=== PATIENT | male | born 1955 | race Caucasian/White ===

== ENCOUNTER 2021-09-10 08:05 | Outpatient (REF) | payer MEDICARE, SELFPAY ==
[2021-09-10 11:27] LABS: MANUAL DIFF FLAG NO
[2021-09-10 11:35] LABS: Appearance Urine TURBID; Color Urine YELLOW; Glucose Urine UA NEG (NEG); Leukocyte Esterase Urine NEG (NEG); Nitrite Urine NEG (NEG); Specific Gravity - Urine >= 1.030 (1.005-1.025); Urine Blood NEG (NEG); Urine Ketones NEG (NEG); Urine Protein NEG (NEG-TRACE)
[2021-09-10 11:39] LABS: Basophils Percent Auto 0.7 % (0-2); Eosinophils Percent Auto 0.2 % (0-4); Hematocrit 45.1 % (42-52); Hemoglobin 15.7 g/dl (14.0-18.0); Imm Gran Abs Auto 0.01 X10*3/uL (0.00-0.03); Imm Gran Pct Auto 0.2 % (0.0-0.4); Lymphocytes Absolute Auto 1.6 X10*3/uL (1.2-4.9); Lymphocytes Percent Auto 27.6 % (20-40); Mean Corpuscular HGB Conc 34.8 g/dl (31.0-36.0); Mean Platelet Volume 11.1 fL (9.4-12.4); Monocytes Absolute Auto 0.5 X10*3/uL (0.1-1.2); Monocytes Percent Auto 9.3 % (2-11); Neutrophils Absolute Auto 3.5 X10*3/uL (2.0-8.3); Platelet Count 201 X10*3/uL (160-400); Red Cell Distribution Width 14.3 % (11.0-16.0); White Blood Count 5.7 X10*3/uL (4.8-10.8)
[2021-09-10 11:55] LABS: Estimated Average Glucose 100 mg/dL; Hemoglobin A1c % 5.1 %
[2021-09-10 11:58] LABS: Alanine Aminotransferase 31 U/L (0-40); Albumin Level 4.3 g/dL (3.5-5.0); Alkaline Phosphatase 82 U/L (39-117); Amorphous Sediment Urine 4+ /LPF; Anion Gap 14 (12-20); Aspartate Amino Transferase 24 U/L (5-37); Bilirubin Total 0.8 mg/dL (0.0-1.0); Blood Urea Nitrogen 12 mg/dL (9-16); Calcium 9.4 mg/dL (8.4-10.2); Carbon Dioxide 26 mmol/L (22-29); Chloride 107 mmol/L (96-108); Cholesterol 146 mg/dL; Estimated Glomerular Filt Rate > 60; Glucose Fasting 117 mg/dL (60-99); HDL Cholesterol 55 mg/dL; LDL Cholesterol Calculated 77 mg/dl; Potassium 4.7 mmol/L (3.3-5.1); RBC Urine 0-2 /HPF (0); Sodium 142 mmol/L (135-145); Total Protein 6.8 g/dL (6.5-8.0); Triglycerides 70 mg/dL; WBC Urine 0-2 /HPF (0-4)
[2021-09-10 12:19] LABS: Vitamin D 25-OH Total 54.8 ng/mL (>30)
[2021-09-10 12:21] LABS: Creatinine Urine 258.08 mg/dL; Microalbum/Creatinine Ratio Ur 4.2 ug/mg cr
[2021-09-10 12:43] LABS: Folate 15.6 ng/mL (> or = 4.0); Vitamin B12 871 pg/mL (200-900)
[2021-09-15 11:21] LABS: Vitamin B1 67 nmol/L (8-30)
[2021-09-15 14:17] LABS: Vitamin B6 67.7 ng/mL (2.1-21.7)
== END 2021-09-10 08:06 | disposition home or self-care (01) ==
LOC: HO.HMGCLDS 08:05
PROVIDERS: PCP Internal Medicine; Visit Provider Internal Medicine
DX: I10 Essential (primary) hypertension (principal); E78.00 Pure hypercholesterolemia, unspecified; G62.9 Polyneuropathy, unspecified
CPT/HCPCS: 36415; 80053; 80061; 81001; 82043; 82306; 82607; 82746; 83036; 84207; 84425; 85025

== ENCOUNTER → 2022-08-15 09:43 | Outpatient (REF) | payer MEDICARE, SELFPAY ==
--- NOTE | 2022-08-15 | ECG_ITS ---
Test Reason : i10 Blood Pressure : / mmHG Vent. Rate : 101 BPM Atrial Rate : 101 BPM P-R Int : 172 ms QRS Dur : 090 ms QT Int : 342 ms P-R-T Axes : 051 020 044 degrees QTc Int : 443 ms Sinus tachycardia Otherwise normal ECG No previous ECGs available Referred By: Louis Gaviria Electronically Signed By:LOUIS FORRESTER
[2022-08-15 11:38] LABS: MANUAL DIFF FLAG NO
[2022-08-15 11:45] LABS: Basophils Absolute Auto 0.1 X10*3/uL (0.0-0.2); Basophils Percent Auto 0.9 % (0-2); Eosinophils Percent Auto 0.4 % (0-4); Hematocrit 49.6 % (42.0-52.0); Hemoglobin 17.4 g/dl (14.0-18.0); Imm Gran Abs Auto 0.02 X10*3/uL (0.00-0.03); Imm Gran Pct Auto 0.4 % (0.0-0.4); Lymphocytes Absolute Auto 1.8 X10*3/uL (1.2-4.9); Lymphocytes Percent Auto 33.4 % (20-40); Mean Corpuscular HGB Conc 35.1 g/dl (31.0-36.0); Mean Corpuscular Hemoglobin 31.6 pg (27.0-33.0); Mean Corpuscular Volume 90.2 fL (80.0-98.0); Mean Platelet Volume 10.8 fL (9.4-12.4); Monocytes Absolute Auto 0.5 X10*3/uL (0.1-1.2); Monocytes Percent Auto 8.2 % (2-11); Neutrophils Absolute Auto 3.1 x10*3/uL (2.0-8.3); Neutrophils Percent Auto 56.7 % (45-73); Platelet Count 217 X10*3/uL (160-400); Red Cell Distribution Width 13.1 % (11.0-16.0); White Blood Count 5.5 X10*3/uL (4.8-10.8)
[2022-08-15 11:58] LABS: Appearance Urine Clear; Color Urine Dark Yellow; Glucose Urine UA Negative (Negative); Leukocyte Esterase Urine Trace (Negative); Nitrite Urine Negative (Negative); UMIC TRIGGER UA YES; Urine Blood Negative (Negative); Urine Ketones Negative (Negative); Urine Protein Negative (Neg-Trace)
[2022-08-15 12:00] LABS: Estimated Average Glucose 105 mg/dL; Hemoglobin A1c % 5.3 %
[2022-08-15 12:04] LABS: Bacteria Urine None Seen (None Seen); Hyaline Casts Urine 0-2 /LPF (0-2); RBC Urine 0-2 /HPF (0-2); Squamous Epithelial Cell Urine 0-2 /HPF (0-2); WBC Urine 0-5 /HPF (0-5)
[2022-08-15 12:16] LABS: Alanine Aminotransferase 38 U/L (0-40); Albumin Level 4.8 g/dL (3.5-5.0); Alkaline Phosphatase 89 U/L (39-117); Anion Gap 16 (12-20); Aspartate Amino Transferase 24 U/L (5-37); Bilirubin Total 1.4 mg/dL (0.0-1.0); Blood Urea Nitrogen 17 mg/dL (9-16); Carbon Dioxide 26 mmol/L (22-29); Chloride 102 mmol/L (96-108); Cholesterol 188 mg/dL; Estimated Glomerular Filt Rate > 60; Glucose Fasting 123 mg/dL (60-99); HDL Cholesterol 52 mg/dL; LDL Cholesterol Calculated 109 mg/dl; Potassium 4.2 mmol/L (3.3-5.1); Sodium 140 mmol/L (135-145); Total Protein 7.7 g/dL (6.5-8.0); Triglycerides 139 mg/dL
[2022-08-15 12:24] LABS: Thyroid Stimulating Hormone 0.91 uIU/mL (0.32-4.0); Vitamin D 25-OH Total 56.9 ng/mL (>30)
[2022-08-15 12:32] LABS: Cortisol Random 10.4 ug/dL
[2022-08-15 12:51] LABS: Folate > 20.0 ng/mL (> or = 4.0); Vitamin B12 659 pg/mL (200-900)
[2022-08-15 13:07] LABS: Creatinine Urine 186.82 mg/dL; Microalbum/Creatinine Ratio Ur 4.8 ug/mg cr
--- NOTE | 2022-08-15 14:08 | CA_ITS ---
Transthoracic Echocardiogram Patient (Last, First, Middle): Eber Causey V Gender: Male Date of : 1955 Age: 67 Procedure Date: 08/15/2022 Procedure Type: Transthoracic Echocardiogram Location: OP Height: 180.34 cm Weight: 90.72 kg BSA: 2.11 m2 Heart Rate: 106 bpm BP: 140 / 80 mmHg Panel Edge Painter: MICHAEL Referring MD: Louis Gaviria DO Dairy Processing Supervisor: Nicolás Aldana MD Symptoms: I10 Study Quality: Technically Difficult ECG Rhythm: Tachycardia Conclusions: - 1. Technically difficult study 2. Normal LV systolic function with impaired relaxation filling pattern next 3. Fibrocalcific aortic and mitral and calcification noted with normal cardiac valvular Doppler Findings Left Ventricle Normal left ventricular size, thickness, and systolic function. The visually estimated ejection fraction is between 55-60%. Regional wall motion abnormalities can not be excluded due to suboptimal endocardial definition. Spectral Doppler is indicative of an impaired relaxation filling pattern. E/E prime ratio is between 8 and 15 consistent with indeterminate filling pressures. Possible basal inferior and inferoseptal hypokinesis. Right Ventricle Normal right ventricular cavity size. Atria The left atrium is normal in size. Interatrial shunt cannot be excluded. The right atrium was not well visualized. Aortic Valve There is mild calcification of the aortic valve. There is no aortic valve stenosis. There is no aortic valve regurgitation. Mitral Valve There is mild anterior and posterior mitral leaflet thickening. There is mild mitral annular calcification. There is trace mitral valve regurgitation. There is no mitral valve stenosis. Pulmonic Valve The pulmonic valve was not well visualized. Tricuspid Valve Likely normal tricuspid valve structure and function. Tricuspid regurgitation envelope is inadequate for calculation of right ventricular systolic pressure. Great Vessels The aorta was not well visualized. The pulmonary artery was not well visualized. Venous The inferior vena cava was not well visualized. Pericardium/Pleural The pericardium was not well visualized. Prior Study Comparison No prior study available for comparison. Recommendations, Care & Conclusions Recommend contrast in the future to improve endocardial definition. Measurements 2D Linear Measurements IVSd: 1.23 0.6-0.9/0.6-1.0 cm LVIDd: 3.37 3.9-5.3/4.2-5.9 cm LVIDd Index: 1.60 2.4-3.2/2.2-3.1 cm/m2 LVIDs: 2.51 2.0-3.6 cm LVPWd: 0.89 0.7-1.1 cm LA Diam: 2.90 2.7-3.8/3.0-4.0 cm LAIDs Index: 1.37 1.5-2.3 cm/m2 LV Mass: 132.28 67-162/88-224 g LV Mass Index: 62.69 43-95/49-115 g/m2 LVOT Diam: 2.00 3.0+(-)1.3 cm 2D Systolic Function EF 4C: 59.60 >55% EF 2C: 50.20 >55% EF BiP: 55.50 >55% Mitral Valve MV Pk E: 0.60 MV PK A: 1.08 MV Decel Time: 177.00 E/A: 0.60 E'Lateral: 7.29 E'Medial: 5.44 E/E' Med: 11.10 E/E' Lat: 8.30 PHT: 52.00 MVA PHT: 4.23 Decel Tompkins: 3.41 Aortic Valve AoV Pk Yehuda: 0.82 AoV Mn Yehuda: 0.64 AoV VTI: 0.15 AoV Pk Grad: 3.00 Aov Mn Grad: 2.00 XIOMY Cont.VTI: 3.04 LVOT LVOT Pk Yehuda: 0.83 LVOT Mn Yehuda: 0.61 LVOT VTI: 0.15 LVOT Pk Grad: 3.00 LVOT Mn Grad: 2.00 LVOT Diam: 2.00 LVOT Area: 3.14 Diastolic Function MV Pk E: 0.60 MV Pk A: 1.08 E/A: 0.60 E'Medial: 5.44 E/E' Med: 11.10 E' Laterial: 7.29 E/E' Lat: 8.30 Right Ventricle TAPSE (mm): 17.30 TVS' Yehuda: 9.90 Great Vessels Aorta Sinus of Valsalva: 3.90 2.0-3.5 cm Ao Asc: 3.70 2.1-3.4 cm Pulmonary Valve PV Pk Yehuda: 0.86 Peak PV Grad: 3.00 Updated in Other Vendor System with Status of Final Nicolás Aldana MD electronically signed on 08/16/2022 11:44:49 AM with status of Final
[2022-08-15 14:18] LABS: Prostate Specific Antigen 0.27 ng/mL (<0.05-4.0)
[2022-08-20 16:07] LABS: Vitamin B1 37 nmol/L (8-30)
[2022-08-20 19:17] LABS: Vitamin B5 (Pantothenic Acid) 475 ng/mL (<275)
[2022-08-21 09:41] LABS: Vitamin B6 58.7 ng/mL (2.1-21.7)
[2022-08-22 20:37] LABS: Testosterone, Free 57.1 pg/mL (35.0-155.0); Testosterone, Total 488 ng/dL (250-1100)
[2022-08-23 14:11] LABS: Nicotinamide 80 ng/mL; Vit B3 - Nicotinic Acid <20 ng/mL
== END ==
LOC: HO.CARD 09:43
PROVIDERS: PCP Internal Medicine; Visit Provider Internal Medicine
DX: Z12.5 Encounter for screening for malignant neoplasm of prostate (principal); I10 Essential (primary) hypertension
CPT/HCPCS: 36415; 80053; 80061; 81001; 82043; 82306; 82533; 82607; 82746; 83036; 84153; 84207; 84402; 84403; 84425; 84443; 84591; 85025; 93005; 93306

== ENCOUNTER 2023-07-11 11:36 | Outpatient (REF) | payer MEDICARE, SELFPAY ==
[2023-07-11 13:48] LABS: Appearance Urine Clear; Color Urine Dark Yellow; Glucose Urine UA Negative (Negative); Leukocyte Esterase Urine Negative (Negative); Nitrite Urine Negative (Negative); PH 5.5 (5.0-9.0); Specific Gravity - Urine 1.025 (1.005-1.025); Urine Blood Negative (Negative); Urine Ketones Negative (Negative); Urine Protein Negative (Neg-Trace)
[2023-07-11 13:54] LABS: Bacteria Urine None Seen (None Seen); Hyaline Casts Urine 0-2 /LPF (0-2); RBC Urine 0-2 /HPF (0-2); Squamous Epithelial Cell Urine 0-2 /HPF (0-2); WBC Urine 0-5 /HPF (0-5)
[2023-07-11 13:58] LABS: MANUAL DIFF FLAG NO
[2023-07-11 14:10] LABS: Basophils Percent Auto 0.7 % (0-2); Eosinophils Absolute Auto 0.1 X10*3/uL (0.0-0.4); Eosinophils Percent Auto 2.4 % (0-4); Hematocrit 45.4 % (42.0-52.0); Hemoglobin 15.7 g/dl (14.0-18.0); Imm Gran Abs Auto 0.03 X10*3/uL (0.00-0.03); Imm Gran Pct Auto 0.5 % (0.0-0.4); Lymphocytes Absolute Auto 2.1 X10*3/uL (1.2-4.9); Lymphocytes Percent Auto 36.2 % (20-40); Mean Corpuscular HGB Conc 34.6 g/dl (31.0-36.0); Mean Corpuscular Hemoglobin 32.1 pg (27.0-33.0); Mean Corpuscular Volume 92.8 fL (80.0-98.0); Monocytes Absolute Auto 0.5 X10*3/uL (0.1-1.2); Monocytes Percent Auto 9.2 % (2-11); Platelet Count 193 X10*3/uL (160-400); Red Blood Count 4.89 X10*6/uL (4.60-5.80); Red Cell Distribution Width 13.1 % (11.0-16.0); White Blood Count 5.9 X10*3/uL (4.8-10.8)
[2023-07-11 14:27] LABS: Estimated Average Glucose 103 mg/dL; Hemoglobin A1c % 5.2 % (<6.0)
[2023-07-11 14:36] LABS: Creatinine Urine 162.12 mg/dL; Microalbum/Creatinine Ratio Ur 5.5 ug/mg cr (<30)
[2023-07-11 16:27] LABS: Alanine Aminotransferase 32 U/L (0-40); Albumin Level 4.2 g/dL (3.5-5.0); Alkaline Phosphatase 101 U/L (39-117); Anion Gap 14 (12-20); Aspartate Amino Transferase 22 U/L (5-37); Bilirubin Total 0.8 mg/dL (0.0-1.0); Blood Urea Nitrogen 17 mg/dL (9-16); Calcium 9.3 mg/dL (8.4-10.2); Carbon Dioxide 25 mmol/L (22-29); Chloride 105 mmol/L (96-108); Cholesterol 165 mg/dL (<200); Estimated Glomerular Filt Rate > 60; Glucose Fasting 111 mg/dL (60-99); HDL Cholesterol 57 mg/dL (>40); LDL Cholesterol Calculated 80 mg/dL (<100); Potassium 3.8 mmol/L (3.3-5.1); Sodium 140 mmol/L (135-145); Total Protein 7.2 g/dL (6.5-8.0); Triglycerides 142 mg/dL (<150)
[2023-07-11 16:30] LABS: Prostate Specific Antigen 0.34 ng/mL (<0.05-4.0)
[2023-07-11 16:55] LABS: Thyroid Stimulating Hormone 1.06 uIU/mL (0.32-4.0)
== END 2023-07-11 11:37 | disposition home or self-care (01) ==
LOC: HO.HMGCLDS 11:36
PROVIDERS: PCP Internal Medicine; Visit Provider Internal Medicine
DX: Z12.5 Encounter for screening for malignant neoplasm of prostate (principal); I10 Essential (primary) hypertension; E78.00 Pure hypercholesterolemia, unspecified; G62.9 Polyneuropathy, unspecified; R73.01 Impaired fasting glucose
CPT/HCPCS: 36415; 80053; 80061; 81001; 82043; 83036; 84153; 84443; 85025

== ENCOUNTER 2024-07-07 12:52 | Outpatient (REF) | payer MEDICARE, SELFPAY ==
--- NOTE | ~2024-07-07 | XR_ITS ---
EXAMINATION: XR CERVICAL SPINE CLINICAL INFORMATION: Neck pain. COMPARISON: None available. TECHNIQUE: Frontal, odontoid, lateral and swimmer's views of the cervical spine were obtained. FINDINGS: Vertebral body heights are normal. There is a mild cervicothoracic levoscoliosis. At C5-6, there is moderately severe disc space narrowing, with endplate arthropathy. The remaining disc spaces are relatively well-maintained. No acute fracture or spondylolisthesis is seen. The posterior elements are intact. The paravertebral soft tissues are unremarkable. XR/XR cervical spine 3V IMPRESSION: 1. There is moderately severe degenerative disc disease at C5-6. 2. There is a mild cervicothoracic levoscoliosis. Electronically signed by: Hao Duvall MD 07/26/2024 09:00 PM EDT RP
== END 2024-07-07 12:53 | disposition home or self-care (01) ==
LOC: HO.HMGCX 12:52
PROVIDERS: PCP Internal Medicine; Visit Provider Internal Medicine
DX: M54.2 Cervicalgia (principal)
CPT/HCPCS: 72040

== ENCOUNTER 2024-08-11 08:22 | Day surgery (SDC) | payer MEDICARE, SELFPAY ==
[2024-08-09 13:51] VITALS: BMI 28.9
[2024-08-09 14:19] VITALS: BMI 28.9
--- NOTE | 2024-08-10 08:30 | HO.ANESPROP2 ---
Documented by User: Cher Fuentes NP 08/10/24 08:31 HPI - Anesthesia Eval Consult details Narrative: 69yo M for Colonoscopy [facility] Past Medical History Medical History HTN (hypertension) Surgical History Surgical History Hx of colonoscopy Social History Social History Patient Tobacco Use Status: Never used Tobacco Use of substances other than those prescribed or required for medical reasons: No Are you DNR?: No Advance Directives: No Advance Directives Information Provided: Yes Meds Allergies Allergy/AdvReac Type Severity Reaction Status Date / Time No Known Allergies Allergy Unverified 08/08/24 16:45 Home Medications ?Medication ?Instructions ?Recorded ?Confirmed ?Last Taken ?Type aspirin 81 mg tablet,delayed 81 mg PO DAILY 08/09/24 08/09/24 Unknown History release hydrochlorothiazide 25 mg tablet 25 mg PO QAM 08/09/24 08/09/24 Unknown History multivitamin 1 tab PO DAILY 08/09/24 08/09/24 Unknown History propranolol 60 mg capsule,24 60 mg PO DAILY 08/09/24 08/09/24 Unknown History hr,extended release rosuvastatin 5 mg tablet 5 mg PO DAILY 08/09/24 08/09/24 Unknown History Exam Height,Weight and Vital Signs: Height 5 ft 11 in Weight 93.894 kg Assessment and Plan Assessment Anesthesia Assessment: Chart Reviewed Documented by User: Margarita Alexander MD 08/11/24 08:39 [facility] Past Medical History Medical History HTN (hypertension) Family History Family history of problems with anesthesia: No Surgical History Surgical History Hx of colonoscopy History of Problems with Anesthesia: No Social History Social History Patient Tobacco Use Status: Never used Tobacco Use of substances other than those prescribed or required for medical reasons: No Are you DNR?: No Advance Directives: No Advance Directives Information Provided: Yes Meds Allergies Allergy/AdvReac Type Severity Reaction Status Date / Time No Known Allergies Allergy Unverified 08/08/24 16:45 Home Medications ?Medication ?Instructions ?Recorded ?Confirmed ?Last Taken ?Type aspirin 81 mg tablet,delayed 81 mg PO DAILY 08/09/24 08/09/24 Unknown History release hydrochlorothiazide 25 mg tablet 25 mg PO QAM 08/09/24 08/09/24 Unknown History multivitamin 1 tab PO DAILY 08/09/24 08/09/24 Unknown History propranolol 60 mg capsule,24 60 mg PO DAILY 08/09/24 08/09/24 Unknown History hr,extended release rosuvastatin 5 mg tablet 5 mg PO DAILY 08/09/24 08/09/24 Unknown History Exam Airway Mallampati Class: II TM Dist: >3cm Neck ROM: Full Heart: rrr Lungs: cta Assessment and Plan Assessment Anesthesia Assessment: Anesthesia Plan Discussed Final Anesthetic Review Family History of Problems with Anesthesia: No History of Problems with Anesthesia: No NPO: Yes ASA Class: II Final Preanesthetic Review: No Changes in Pt Med Stat, Meds/Allgs Chart Reviewed, Consent Obtained/Reviewed and Anes Risks/Benef Reviewed Patient Risk: Low
--- OUTSIDE RECORDS SUMMARY | 2024-08-11 08:24 | XMS_ITS | Continuity of Care Document ---
Author Organization [facility] Address [address] [place] [id number]- Care Team Providers Care Supervisor Taping Name Role Phone Louis Gaviria DO Primary Care Physician [place] [facility] [place] - 10/04/[address] [address]- Patient Care team information Care Team Personnel Name: Louis Gaviria DO Position: Reference Physician Member Role: PCP Address: Address: [address] [place] [address] [place] [address]- Care Team Related Persons Name: KIMBERLY MURILLO
--- OUTSIDE RECORDS SUMMARY | 2024-08-11 08:24 | XMS_ITS | Continuity of Care Document ---
Author Organization [facility] Address [address] [address]- Care Team Providers Care Balancing Machine Operator Name Role Phone Louis Gaviria DO Primary Care Physician Encounter [facility] [place] Date(s): 09/04/22 - 11/16/22 [facility] [address] [address]- Attending Physician: Naresh Thompson MD, Balaji Hernandez Admitting Physician: Naresh Thompson MD, Balaji Hernandez Referring Physician: Louis Gaviria DO Patient Care team information Care Team Personnel Name: Louis Gaviria DO Position: Reference Physician Member Role: PCP Address: Address: [address] [place] [address] [place] [address]- Care Team Related Persons Name: KIMBERLY MURILLO
--- OUTSIDE RECORDS SUMMARY | 2024-08-11 08:24 | XMS_ITS | Continuity of Care Document ---
Author Organization [facility] Address [address] [address]- Care Team Providers Care Dental Receptionist Name Role Phone Louis Gaviria DO Primary Care Physician Encounter [facility] [place] Date(s): 10/17/22 - 11/16/22 [id number], [place] [address]- Attending Physician: Admtr, Ar8 Admitting Physician: Admtr, Ar8 Referring Physician: Admtr, Ar8 Patient Care team information Care Team Personnel Name: Louis Gaviria DO Position: Reference Physician Member Role: PCP Address: Address: [address] [place] [address] [place] [address]- Care Team Related Persons Name: KIMBERLY MURILLO
[2024-08-11 09:21] VITALS: BP 138/84; PULSE 78; RESP 14; TEMP 36.4; O2SAT 97
[2024-08-11] MEDS: Lactated Ringers 1,000 ML 100 ML IVCONT (09:34)
[2024-08-11 10:40] VITALS: BP 113/73; PULSE 72; RESP 18; TEMP 36.4; O2SAT 97
--- NOTE | 2024-08-11 10:43 | P.BOP_ITS ---
Brief Operative Note Date of Service: 08/11/24 Pre-op diagnosis: Screening Post-op diagnosis: other (Colon polyps) Procedure: Colonoscopy to the cecum and TI with hot snare polypectomy x 2, bx/removal of polyp, and placement of a Resolution clip on the cecal polypectomy site Surgeon: Louis Garcia MD Anesthesia: MAC Was an Compliance Engineer Products used for this Procedure?: No Estimated blood loss (mL): 2.0 Pathology: other (A. Cecal polyp B. Ascending colon polyps) Condition: stable Disposition: PACU
[2024-08-11 10:55] VITALS: BP 119/79; PULSE 68; RESP 20; TEMP 36.4; O2SAT 97
--- NOTE | 2024-08-11 11:00 | OP_ITS ---
DATE OF SERVICE: 08/11/2024 SURGEON: Louis Garcia MD INDICATIONS: The patient presents for followup of personal history of tubular adenoma of the colon and need for colorectal cancer screening. Full consent has been obtained from him for this, including risks of bleeding and perforation. PREOPERATIVE DIAGNOSIS: Colorectal cancer screening and personal history of tubular adenoma of the colon. POSTOPERATIVE DIAGNOSIS: Colorectal cancer screening and personal history of tubular adenoma of the colon, colon polyps, diverticulosis, and internal hemorrhoids. PROCEDURE PERFORMED: Colonoscopy to the cecum and terminal ileum with hot snare polypectomy x2, biopsy and removal of polyp, and placement of 1 resolution clip on the cecal polypectomy site. ESTIMATED BLOOD LOSS: COMPLICATIONS: ANESTHESIA: ASSISTANTS: SPECIMENS: PREPOPERATIVE MEDICATION USED: Monitored anesthesia care. DESCRIPTION OF PROCEDURE: The patient was placed in the left lateral decubitus position. The digital rectal exam revealed no abnormalities. The [employer] video pediatric colonoscope was entered into the rectum advanced easily to the cecum. Once in the cecum, I did identify cecal pouch with appendiceal orifice and a normal-appearing ileocecal valve. The terminal ileum was cannulated and appeared normal. The scope withdrawn back in the colon. The entire cecum was well visualized. In the cecum was an approximately 12 mm raised but relatively flat polyp, which was removed by hot snare polypectomy and recovered by suction. The polypectomy site appeared clean, without any sign of residual polyp nor bleeding. A single resolution clip was applied with good deployment and good hemostasis. The remainder of the cecum appeared normal. The scope was then slowly withdrawn assessing all mucosal surfaces carefully. Preparation was excellent. In the proximal ascending colon was an approximately 4 mm polyp, which was biopsied and completely removed with cold biopsy forceps. In the more distal ascending colon was an approximately 6 mm polyp, which was removed by hot snare polypectomy recovered by suction. The polypectomy site appeared clean, without any sign of residual polyp nor bleeding. I did not visualize any other polyps, colitis, nor angiodysplasia. There was a mild amount of sigmoid diverticulosis. In the rectum, scope was retroflexed visualizing internal hemorrhoids, but no other pathology. The rectal mucosa appeared normal. The scope was straightened and withdrawn from the patient. He tolerated the procedure well and was returned to recovery area in stable condition. IMPRESSION: 1. Colon polyps. 2. Diverticulosis. 3. Internal hemorrhoids. PLAN: The results of the pathology will be checked. He was advised not to use any aspirin and NSAIDs for 1 week. Given today's findings and his previous history of polyps, I would recommend a repeat colonoscopy in 3 years for further surveillance rather than 5. He will see me otherwise on a p.r.n. basis. MD JASMINA Harris/MENDY / [id number]
== END 2024-08-11 11:19 | disposition home or self-care (01) ==
PROVIDERS: PCP Internal Medicine; Visit Provider Internal Medicine
PROC: 0DJD8ZZ Inspection of Lower Intestinal Tract, Via Natural or Artificial Opening Endoscopic (ICD-10-PCS; CPT 45378; principal; 2024-08-11 09:30)
DX: Z12.11 Encounter for screening for malignant neoplasm of colon (principal); D12.0 Benign neoplasm of cecum; D12.2 Benign neoplasm of ascending colon; K57.30 Diverticulosis of large intestine without perforation or abscess without bleeding; K64.8 Other hemorrhoids; Z86.010 Personal history of colon polyps; I10 Essential (primary) hypertension; Z79.82 Long term (current) use of aspirin; Z79.02 Long term (current) use of antithrombotics/antiplatelets; Z79.899 Other long term (current) drug therapy
CPT/HCPCS: 45385; 45380; 88305; J2704

== ENCOUNTER 2024-08-20 09:03 | Outpatient (REF) | payer MEDICARE, SELFPAY ==
[2024-08-20 10:01] LABS: MANUAL DIFF FLAG NO
[2024-08-20 10:06] LABS: Basophils Absolute Auto 0.1 X10*3/uL (0.0-0.2); Basophils Percent Auto 0.9 % (0-2); Eosinophils Absolute Auto 0.1 X10*3/uL (0.0-0.4); Eosinophils Percent Auto 0.9 % (0-4); Hematocrit 47.6 % (42.0-52.0); Hemoglobin 16.3 g/dl (14.0-18.0); Imm Gran Abs Auto 0.04 X10*3/uL (0.00-0.03); Imm Gran Pct Auto 0.6 % (0.0-0.4); Lymphocytes Absolute Auto 2.4 X10*3/uL (1.2-4.9); Lymphocytes Percent Auto 35.9 % (20-40); Mean Corpuscular HGB Conc 34.2 g/dl (31.0-36.0); Mean Corpuscular Hemoglobin 31.3 pg (27.0-33.0); Mean Corpuscular Volume 91.5 fL (80.0-98.0); Mean Platelet Volume 10.6 fL (9.4-12.4); Monocytes Absolute Auto 0.6 X10*3/uL (0.1-1.2); Monocytes Percent Auto 9.2 % (2-11); Neutrophils Absolute Auto 3.6 x10*3/uL (2.0-8.3); Neutrophils Percent Auto 52.5 % (45-73); Platelet Count 231 X10*3/uL (160-400); Red Cell Distribution Width 13.6 % (11.0-16.0); White Blood Count 6.8 X10*3/uL (4.8-10.8)
[2024-08-20 10:40] LABS: Estimated Average Glucose 114 mg/dL; Hemoglobin A1C 145.1373 umol/L; Hemoglobin A1c % 5.6 % (<6.0); Total Hemoglobin (HGBA1C) 3828.5369 umol/L
[2024-08-20 10:58] LABS: Alanine Aminotransferase 41 U/L (0-40); Albumin Level 4.6 g/dL (3.5-5.0); Alkaline Phosphatase 121 U/L (39-117); Anion Gap 16 (12-20); Aspartate Amino Transferase 23 U/L (5-37); Bilirubin Total 0.5 mg/dL (0.0-1.0); Blood Urea Nitrogen 20 mg/dL (9-16); Calcium 9.6 mg/dL (8.4-10.2); Carbon Dioxide 23 mmol/L (22-29); Chloride 107 mmol/L (96-108); Cholesterol 180 mg/dL (<200); Estimated Glomerular Filt Rate > 60; Glucose Fasting 118 mg/dL (60-99); HDL Cholesterol 59 mg/dL (>40); LDL Cholesterol Calculated 107 mg/dL (<100); Potassium 4.2 mmol/L (3.3-5.1); Sodium 142 mmol/L (135-145); Total Protein 7.7 g/dL (6.5-8.0); Triglycerides 73 mg/dL (<150)
[2024-08-20 11:02] LABS: Thyroid Stimulating Hormone 1.55 uIU/mL (0.32-4.0)
[2024-08-20 11:14] LABS: PSA,Total (Free>4and<10) 0.45 ng/mL (0.00-4.00)
== END 2024-08-20 09:04 | disposition home or self-care (01) ==
LOC: HO.HMGCLDS 09:03
PROVIDERS: PCP Internal Medicine; Visit Provider Internal Medicine
DX: Z00.00 Encounter for general adult medical examination without abnormal findings (principal); I10 Essential (primary) hypertension; E78.00 Pure hypercholesterolemia, unspecified; G62.9 Polyneuropathy, unspecified; Z12.5 Encounter for screening for malignant neoplasm of prostate; Z13.1 Encounter for screening for diabetes mellitus
CPT/HCPCS: 36415; 80053; 80061; 83036; 84153; 84443; 85025

== ENCOUNTER 2025-08-29 09:38 | Outpatient (REF) | payer MEDICARE, SELFPAY ==
--- OUTSIDE RECORDS SUMMARY | 2025-08-29 09:46 | XMS_ITS | Clinical Summary ---
Author Organization [facility] Address [address] [place] [address] Phone Care Team Providers Care Pararescue Craftsman Name Role Phone Louis Gaviria DO Primary Care Provider [phone] Allergies No known active allergies Immunizations Immunization Administration Dates Next Due COVID-19 (Pre-09/08) Pfizer Vaccine, mRNA, PF ,02/17/2021 Social History Tobacco Use Types Packs/Day Years Used Date Smoking Tobacco: Never Education Answer Date Recorded Are you interested in more education? Not on aniya e 03/14/2023 Are you concerned about learning? Not on file 03/14/2023 No 03/14/2023 No 03/14/2023 Digital Access Answer Date Recorded No 04/14/2023 No 04/14/2023 No 04/14/2023 Reliable internet access at home? Not on file 04/14/2023 Device with a working camera? Not on file Sex and Gender Information Value Date Recorded Sex Assigned at Not on file Legal Sex Male 3:14 PM EDT Gender Identity Not on file Sexual Orientation Not on file Last Filed Vital Signs Vital Sign Reading Time Taken Comments Blood Pressure 127/84 02/24/2015 1:35 PM EDT Pulse 100 02/24/2015 1:35 PM EDT Temperature - - Respiratory Rate - - Oxygen Saturation - - Inhaled Oxygen Concentration - - Weight 86.2 kg (190 lb) 02/24/2015 1:35 PM EDT Height 177.8 cm (5' 10 ) 02/24/2015 1:35 PM EDT Body Mass Index 27.26 02/24/2015 1:35 PM EDT Plan of Treatment Health Maintenance Due Date Last Done Comments Adult Td,Tdap Booster 1955 DEPRESSION SCREENING 1965 HEPATITIS C SCREENING 1971 SMOKING STATUS SCREENING (On ce After 26 Yrs) 1979 COLOGUARD 1998 COLONOSCOPY 1998 COLORECTAL CANCER SCREENING 1998 FIT TEST 1998 FOBT 1998 SIGMOIDOSCOPY 1998 VIRTUAL COLONOSCOPY 1998 PNEUMOCOCCAL VACCINES (50+ years) (1 of 1 - PCV) 2003 ZOSTER VACCINES (1 of 2) 2003 INFLUENZA VACCINE (#1) 2025 COVID-19 VACCINE (3 - 2024-2 6 season) 2025 03/10/2021, 02/17/2021 LIPID PANEL 02/06/2026 02/06/2021 RSV VACCINE (1 - 1-dose 75+ series) 2028 HEPATITIS A VACCINES Aged Out No long er eligible based on patient's age to complete this topic HIB VACCINES Aged Out No longer eligi ble based on patient's age to complete this topic MENINGOCOCCAL VACCINES (ACWY) Aged Out No longer eligible based on patient's age to complete this topic MENINGOCOCCAL VACCINES (B) Aged Out N o longer eligible based on patient's age to complete this topic Medical Devices Not on file Procedures Procedure Name Priority Date/Time Associated Diagnosis Comments LIPID PANEL Routine 02/06/2021 9:32 AM EDT Essential hypertension, malignant Immunity status testing Pure hypercholesterolemia Special screening for malignant neoplasm of prostate from Last 3 Months or Most Recently Relevant to Health Maintenance Results * (ABNORMAL) Lipid panel (02/06/2021 9:32 AM EDT) HDL 56 mg/dL [facility] Comment: Interpretation <40 mg/dL: Low HDL cholesterol (major risk factor for CHD) Greater than or equal to 60 mg/dL: High HDL cholesterol ( negative risk factor for CHD) HDL - cholesterol is affected by a number of factors, e.g. smoking, excerise, hormones, sex and age. CHOLESTEROL 165 0 - 240 mg/dL [facility] TRIGLYCERIDES 127 30 - 160 mg/dL [facility] LDL 84 50 - 129 mg/dL [facility] Comment: LDL levels in terms of risk for coronary heart disease: <100 mg/dL: Optimal 100-129 mg/dL: Near or above optimal 130-159 mg/dL: Borderline high 160-189 mg/dL: High >190 mg/dL: Very High CARDIAC RISK RATIO 2.9(L) 3.4 - 5.0 C [facility] Blood 02/06/2021 9:32 AM EDT 02/06/2021 9:35 AM EDT us Roberto Ramos MD LAB BLOOD ORDERABLES Final Re sult Performing Organization Address City/State/[facility] Co de Phone Number [facility] [address] [place] [address] from Last 3 Months or Most Recently Relevant to Health Maintenance Insurance Care Teams [employer] Relationship Specialty Start Date End Date Louis Gaviria DO [address] [place] [id number] PCP - General Internal Medicine 02/06/21 Additional Source Comments The information contained in this document represents components of the legal health record. It is not the complete legal health record.[facility]
[2025-08-29 13:06] LABS: MANUAL DIFF FLAG NO
[2025-08-29 13:11] LABS: Hematocrit 45.4 % (42.0-52.0); Hemoglobin 15.6 g/dl (14.0-18.0); Imm Gran Abs Auto 0.02 X10*3/uL (0.00-0.03); Imm Gran Pct Auto 0.4 % (0.0-0.4); Lymphocytes Absolute Auto 1.9 X10*3/uL (1.2-4.9); Mean Corpuscular HGB Conc 34.4 g/dl (31.0-36.0); Mean Corpuscular Hemoglobin 31.8 pg (27.0-33.0); Mean Corpuscular Volume 92.5 fL (80.0-98.0); NRBC Abs Auto 0.000 X10*3/uL (0.0-0.012); NRBC Pct Auto 0.0 /100WBC (0.0-0.2); Platelet Count 193 X10*3/uL (160-400); Red Blood Count 4.91 X10*6/uL (4.60-5.80); White Blood Count 5.6 X10*3/uL (4.8-10.8)
[2025-08-29 13:35] LABS: Total Hemoglobin (HGBA1C) 3992.9886 umol/L
[2025-08-29 13:43] LABS: Alanine Aminotransferase 48 U/L (0-40); Albumin Level 4.5 g/dL (3.5-5.0); Alkaline Phosphatase 114 U/L (39-117); Anion Gap 12 (12-20); Aspartate Amino Transferase 33 U/L (5-37); Blood Urea Nitrogen 16 mg/dL (9-16); Calcium 9.3 mg/dL (8.4-10.2); Carbon Dioxide 29 mmol/L (22-29); Chloride 104 mmol/L (96-108); Cholesterol 146 mg/dL (<200); Estimated Glomerular Filt Rate > 60; HDL Cholesterol 47 mg/dL (>40); Magnesium 2.1 mg/dL (1.6-2.6); Potassium 4.1 mmol/L (3.3-5.1); Sodium 141 mmol/L (135-145); Total Protein 6.9 g/dL (6.5-8.0); Triglycerides 84 mg/dL (<150)
[2025-08-29 13:50] LABS: PSA,Total (Free>4and<10) 0.51 ng/mL (0.00-4.00)
[2025-08-29 14:06] LABS: Folate 13.9 ng/mL (> or = 4.0); Vitamin B12 597 pg/mL (200-900)
== END 2025-08-29 09:39 | disposition home or self-care (01) ==
LOC: HO.HMGCLDS 09:38
PROVIDERS: PCP Internal Medicine; Visit Provider Physician Assistant Medical
DX: Z00.00 Encounter for general adult medical examination without abnormal findings (principal); Z12.5 Encounter for screening for malignant neoplasm of prostate; Z13.1 Encounter for screening for diabetes mellitus; Z13.29 Encounter for screening for other suspected endocrine disorder; Z13.6 Encounter for screening for cardiovascular disorders; Z13.21 Encounter for screening for nutritional disorder
CPT/HCPCS: 36415; 80053; 80061; 80076; 82248; 82306; 82607; 82746; 83036; 83735; 84153; 84443; 85025; 86140

== ENCOUNTER 2025-08-30 09:08 | Outpatient (AMB) | payer MEDICARE, SELFPAY ==
--- NOTE | 2025-08-30 09:02 | A.OFFPC_ITS ---
Vital Signs 08/30/25 09:04 Height 5 ft 10 in Weight 206 lb BMI 29.6 BP 142/88 H Respiration 14 Pulse 72 Pulse Source Pulse Oximeter Temp 98.2 F Temp Source Temporal Artery Scan Pulse Oximetry (%) 98 Oxygen Delivery Method Room Air Intake Visit Reasons: physical Customer Support Executive Required: No Accompanied by: Self / Same As Patient Allergies No Known Allergies Allergy (Verified 08/30/25 09:02) Tobacco use date assessed: 08/30/25 Fall risk assessment: No Falls in past year Last assessed Fall Risk: 08/30/25 Dental Screening Dental Screen Date: 08/30/25 Did you have a dental visit in the last 12 months?: Yes Did you have a dental problem in the last 6 months where you did not have access to dental care?: No Was dental information given to patient?: Patient has dentist [facility] Medical History (Updated 08/30/25 @ 09:41 by Mani Marques MD) Hyperlipidemia Essential hypertension Neck pain HTN (hypertension) Surgical History Hx of colonoscopy (~08/11/24) Family History (Updated 08/30/25 @ 09:14 by LUCIEN Melendez) Father Brain tumor Mother BP (high blood pressure) Social History (Updated 08/30/25 @ 09:03 by LUCIEN Melendez) Housing: House Alcohol intake: current Alcohol intake frequency: does not drink Patient Tobacco Use Status: Never used Tobacco service: No Current occupational status: retired Cognitive needs: No Hearing needs: No Vision needs: Yes (reading glasses) Questionnaire PHQ-9 Over the last 2 weeks, how often have you been bothered by any of the following problems? 1. Little interest or pleasure in doing things: not at all 2. Feeling down, depressed, or hopeless: not at all 3. Trouble falling or staying asleep, or sleeping too much: not at all 4. Feeling tired or having little energy: not at all 5. Poor appetite or overeating: not at all 6. Feeling bad about yourself - or that you are a failure or have let yourself or your family down: not at all 7. Trouble concentrating on things, such as reading the newspaper or watching television: not at all 8. Moving or speaking so slowly that other people could have noticed. Or the opposite - being so fidgety or restless that you have been moving around a lot more than usual: not at all 9. Thoughts that you would be better off or of hurting yourself in some way: not at all Total score: 0 Source: Developed by Drs. Louis Meier, Patricia Donahue, Pillo Gar and colleagues, with an educational abraham from [employer]. Thrive Questionnaire Date Thrive assessed: 08/30/25 I am a: Patient What is your living situation today?: I have a steady place to live Within the past 12 months, did the food you bought not last and you didn't have the money to get more?: Never true Within the past 12 months, did you worry whether your food would run out before you got money to buy more?: Never true Do you have trouble paying for medicines?: No Do you have trouble getting transportation to medical appointments?: No Do you have trouble paying your heating and electricity bill?: No Do you have trouble taking care of your child, family member or friend?: No Do you have trouble with day-to-day activities such as bathing, preparing meals, shopping, managing finances, etc.?: No Are you currently unemployed and looking for a job?: No Are you interested in more education?: No Please select the resources that you would like help with: None THRIVE Score: 0 AUDIT C Alcohol Use Questionnaire (AUDIT-C) 1. How often do you have a drink containing alcohol?: 4 or more times a week 2. How many drinks containing alcohol do you have on a typical day when you are drinking?: 1 or 2 3. How often do you have six or more drinks on one occasion?: Never Total Score: 4 VALENTE-7 AMB Questionnaire VALENTE-7 Date VALENTE - 7 assessed: 08/30/25 Feeling nervous, anxious, or on edge: 1 = Several days Not being able to stop or control worryin = Several days Worrying too much about different things: 1 = Several days Trouble relaxin = Not at all Being so restless that it is hard to sit still: 3 = Nearly every day Becoming easily annoyed or irritable: 1 = Several days Feeling afraid as if something awful might happen: 0 = Not at all Total VALENTE-7 score (0-4 normal; 5-9 mild; 10-14 moderate; 15-21 severe): 7 Source: Developed by Drs. Louis Meier, Patricia Donahue, Pillo Gar and colleagues, with an educational abraham from [employer]. Physical exam (Primary Care) Vital Signs: Last Vital Signs Temp 98.2 F 08/30/25 09:04 Pulse 72 08/30/25 09:04 Resp 14 08/30/25 09:04 BP 142/88 H 08/30/25 09:04 Pulse Ox 98 08/30/25 09:04 Oxygen Delivery Method Room Air 08/30/25 09:04 BMI result Body Mass Index 29.6 Tobacco/Smoking Status: Tobacco use Status Tobacco use date assessed 08/30/25 08/30/25 09:16 Patient Tobacco Use Status Never used Tobacco 08/30/25 09:16 PHQ-9: PHQ-9 Score PHQ-9: Total score 0 08/30/25 09:42 Thrive Assessment: Date of Thrive Assessment Date Thrive assessed 08/30/25 08/30/25 09:16 Coding Level of Care Code New Pt Prev Care >65yr (57492) Diagnoses Essential hypertension I10 Hyperlipidemia E78.5 Neck pain M54.2 Annual physical exam Z00.00 Assessment & Plan Assessment & Plan (1) Essential hypertension: Code(s): I10 - Essential (primary) hypertension Category: Medical Plan: Advised to check BP and report via portal. Continue meds at current dosage (2) Hyperlipidemia: Code(s): E78.5 - Hyperlipidemia, unspecified Category: Medical Plan: Continue Statins (3) Neck pain: Code(s): M54.2 - Cervicalgia Category: Medical Plan: Continue Physical therapy (4) Annual physical exam: Code(s): Z00.00 - Encounter for general adult medical examination without abnormal findings Plan: History of Present Illness - The patient is a 70-year-old male presenting with management of elevated blood glucose and hemoglobin A1c levels. - Reports recent increase in blood glucose to 125 mg/dL and hemoglobin A1c to 5.7%, previously stable at 115-118 mg/dL and 5.1-5.3%, respectively. - Attributes changes to increased stress and poor dietary habits over the past year, including excessive alcohol consumption and unhealthy eating. - Motivated to improve these levels through lifestyle changes over the next 90 days. - The patient is a 70-year-old male presenting with evaluation of degenerative disc disease. - Known degenerative problem between C5 and C6, confirmed by an X-ray a year ago. - Experiences mild discomfort but no significant impact on daily activities or need for interventions like steroids or surgery. - The patient is a 70-year-old male presenting with assessment of elevated alanine aminotransferase (ALT) level. - ALT level recently increased to 48 U/L, attributed to alcohol consumption. - The patient is a 70-year-old male presenting with management of hypertension. - Long-standing history of hypertension, managed with propranolol and hydrochlorothiazide. - Reports recent weight gain of 8 pounds, associated with elevated blood pressure readings. - The patient is a 70-year-old male presenting with tinnitus. - Reports tinnitus in one ear, affecting ability to hear when multiple people are speaking simultaneously. 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 - He is and lives with his . - Engages in regular physical activity, playing tennis daily and [place] - Reports a diet high in vegetables and salads but acknowledges overeating. - Has a history of excessive alcohol consumption, particularly during periods of stress. Review of Systems - Endocrine: Reports elevated blood glucose and hemoglobin A1c levels. - Musculoskeletal: Reports mild discomfort in the neck region. - Hepatic: Reports elevated ALT level. - Cardiovascular: Reports history of hypertension. - Neurological: Reports tinnitus in one ear. Physical Exam General: Cooperative and healthy appearing Nutritional Appearance: Well nourished Orientation/consciousness: Patient oriented x3 Limitations: No limitations Head: Normal to inspection General: Appearance normal, both eyes and all related structures Neck: Normal visual inspection Chest: Normal palpation of entire chest wall Respiratory: N ormal respiratory effort Neurology: Patient oriented x3, no weakness in arms, able to play tennis without issues. Results - Labs: Blood glucose level at 125 mg/dL, hemoglobin A1c at 5.7%, ALT level at 48 U/L. - Imaging: X-ray showing degenerative changes between C5 and C6. Plan - Encourage lifestyle modifications to manage blood glucose and hemoglobin A1c levels, including dietary changes and regular exercise. - Continue physical therapy for degenerative disc disease and monitor symptoms; no immediate need for surgical intervention or corticosteroid injections. - Monitor ALT levels and reduce alcohol consumption to manage liver health. - Advise regular blood pressure monitoring at home and report findings; consider adjusting propranolol dosage if hypertension persists. - No immediate intervention required for tinnitus; monitor symptoms and manage environmental factors. Discussion Notes During the consultation, I discussed with the patient the importance of lifestyle modifications to manage his elevated blood glucose and hemoglobin A1c levels, emphasizing dietary changes and regular exercise. We reviewed his degenerative disc disease, and I advised continuing physical therapy while monitoring symptoms, with no immediate need for surgical intervention. I addressed his elevated ALT level, recommending reduced alcohol consumption. For hypertension, I suggested regular home monitoring and potential adjustment of propranolol dosage if necessary. We also discussed tinnitus management, with no immediate intervention required. Follow-up was advised to reassess these conditions. Patient Instructions - Make dietary changes and engage in regular exercise to manage blood glucose levels. - Continue physical therapy for neck issues and monitor any changes in symptoms. - Reduce alcohol consumption to improve liver health. - Monitor blood pressure at home regularly and report findings through the patient portal. - Manage tinnitus by controlling environmental noise and monitor symptoms.
[2025-08-30 09:04] VITALS: BP 142/88; PULSE 72; RESP 14; TEMP 36.8; O2SAT 98; BMI 29.6
--- OUTSIDE RECORDS SUMMARY | 2025-08-30 09:53 | XMS_ITS | Clinical Summary ---
Author Organization [facility] Address [address] [place] [phone] Phone Care Team Providers Care Amusement Ride Operator Name Role Phone Louis Gaviria DO Primary Care Provider Allergies No known active allergies Immunizations Immunization [...] (02/06/2021 9:32 AM EDT) HDL 56 mg/dL [facility] Comment: Interpretation <40 mg/dL: Low HDL cholesterol (major risk factor for CHD) Greater than or equal to 60 mg/dL: High HDL cholesterol ( negative risk factor for CHD) HDL - cholesterol is affected by a number of factors, e.g. smoking, excerise, hormones, sex and age. CHOLESTEROL 165 0 - 240 mg/dL [facility] TRIGLYCERIDES 127 30 - 160 mg/dL [facility] LDL 84 50 - 129 mg/dL [facility] Comment: LDL levels in terms of risk for coronary heart disease: <100 mg/dL: Optimal 100-129 mg/dL: Near or above optimal 130-159 mg/dL: Borderline high 160-189 mg/dL: High >190 mg/dL: Very High CARDIAC RISK RATIO 2.9(L) 3.4 - 5.0 C [facility] Blood 02/06/2021 9:32 AM EDT 02/06/2021 9:35 AM EDT us Roberto Ramos MD LAB BLOOD ORDERABLES Final Re sult Performing Organization Address City/State/[facility] Co de Phone Number [facility] [address] [place] [address] from Last 3 Months or Most Recently Relevant to Health Maintenance Insurance Care Teams Amusement Ride Operator Relationship Specialty Start Date End Date Louis Gaviria DO [address] [place] [phone] PCP - General Internal Medicine 02/06/21 Additional Source Comments The information contained in this document represents components of the legal health record. It is not the complete legal health record.[facility]
== END 2025-08-30 09:46 | disposition home or self-care (01) ==
LOC: HO.HMCSH 09:09
PROVIDERS: PCP Internal Medicine; Visit Provider Internal Medicine
DX: I10 Essential (primary) hypertension (principal); E78.5 Hyperlipidemia, unspecified; M54.2 Cervicalgia; Z00.00 Encounter for general adult medical examination without abnormal findings

== ENCOUNTER → 2025-08-30 09:08 | Outpatient (BNVA) | payer MEDICARE, SELFPAY | PROVIDERS: PCP Internal Medicine; Visit Provider Internal Medicine | DX: Z00.00 Encounter for general adult medical examination without abnormal findings (principal); I10 Essential (primary) hypertension; E78.5 Hyperlipidemia, unspecified; M54.2 Cervicalgia; H93.19 Tinnitus, unspecified ear | CPT/HCPCS: 96127; 99387 ==